=== PATIENT | female | born 1945 | race African-American/Black ===

== ENCOUNTER 2017-08-15 08:36 | Day surgery (SDC) | payer OTHER, MEDICAID ==
[2017-08-15] MEDS ORDERED: D5 LR 1000 ML 1,000 ML IV ONE (08:56)
[2017-08-15] MEDS ORDERED: DIPRIVAN VIAL 20 ML ONE (10:27)
[2017-08-15 11:44] LABS: BLOOD UREA NITROGEN 16 mg/dL (7-18); CALCIUM 9.4 mg/dL (8.5-10.1); CARBON DIOXIDE 29.6 mmol/L (21-32); CHLORIDE 100 mmol/L (98-107); COR NA(FOR HYPERGLY) 140 mmol/L (136-145); CREATININE 1.29 mg/dL (0.55-1.02); SODIUM 139 mmol/L (136-145); eGFR BLACK RACES 52 (>60); eGFR NON BLACK RACES 43 (>60)
[2017-08-15 11:49] LABS: ALANINE AMINOTRANSFERASE 16 Units/L (12-78); ALBUMIN 3.5 g/dL (3.4-5.0); ALKALINE PHOSPHATASE 87 Units/L (46-116); ASPARTATE AMINO TRANSFERASE 15 Units/L (15-37); TOTAL PROTEIN 7.6 g/dL (6.4-8.2)
[2017-08-15 12:00] LABS: BASOPHILS # (AUTO) 0.1 X10^3/uL (0.0-0.1); EOSINOPHILS % (AUTO) 0.7 % (0.9-2.9); HEMATOCRIT 27.9 % (36.0-47.0); HEMOGLOBIN 8.7 g/dL (12.0-16.0); LYMPHOCYTES # (AUTO) 1.3 X10^3/uL (1.3-2.9); LYMPHOCYTES % (AUTO) 24.9 % (21.0-51.0); MEAN CORPUSCULAR HEMOGLOBIN 23.4 pg (27.0-34.0); MEAN CORPUSCULAR HGB CONC 31.2 g/dL (33.0-35.0); MEAN CORPUSCULAR VOLUME 74.9 fL (80.0-100.0); MEAN PLATELET VOLUME 7.3 fL (7.4-11.0); MONOCYTES # (AUTO) 0.3 x10^3/uL (0.3-0.8); MONOCYTES % (AUTO) 5.9 % (0.0-13.0); NEUTROPHILS # (AUTO) 3.4 x10^3/uL (2.2-4.8); NEUTROPHILS % (AUTO) 67.5 % (42.0-75.0); PLATELET COUNT 601 X10^3/uL (150.0-450.0); RED BLOOD COUNT 3.73 X10^6/uL (3.5-5.4); RED CELL DISTRIBUTION WIDTH 15.5 % (11.6-16.5); WHITE BLOOD COUNT 5.1 X10^3/uL (3.6-10.0)
[2017-08-15 12:14] LABS: HYPOCHROMASIA 1+; MICROCYTOSIS 1+; PLATELET MORPHOLOGY COMMENT NORMAL (NORMAL)
[2017-08-15] MEDS ORDERED: K-DUR TAB 20 MEQ PO ONE (13:00)
[2017-08-15 14:43] VITALS: BP 114/60
--- NOTE | 2017-08-15 15:52 | CT ---
CT abdomen and pelvis with contrast Indication: Colon mass Technique: Helical CT images of the abdomen and pelvis were obtained with IV contrast. Reformatted im ages in the coronal and sagittal planes were also generated for review. Comparison: None Findings: Lung bases are clear. No aggressive osseous lesions are identified. The liver, gallbladder, spleen, pancreas, adrenals and kidneys are normal apart from a small right re nal cyst. There is an apple-core lesion of the ascending colon near the hepatic flexure, compatible with the pa tient's known colonic mass. The lumen of the ascending colon is moderately narrowed by the mass witho ut complete obstruction. There is mild pericolonic stranding as well as a few prominent adjacent lymp h nodes. For future reference, a right mesenteric node measures 8 mm in short axis on axial image 36. There is moderate diverticulosis of the descending colon without evidence of acute inflammation. The remaining GI tract, including the appendix is normal. There is moderate calcification of the aortoiliac system without aneurysm. The urinary bladder is nor mal. Calcified fibroids are noted throughout the uterus. The uterus and adnexa are otherwise grossly unremarkable. No free air or free fluid is identified. Impression: Apple core lesion of the ascending colon as detailed above, most compatible with colon cancer. Mildly prominent pericolonic lymph nodes are concerning for regional metastatic disease. If not already per formed, further evaluation with biopsy is advised. Fibroid uterus and additional incidental findings, as above. Reported By:
== END 2017-08-15 12:00 | disposition home or self-care (01) ==
LOC: SURG1 08:36
PROVIDERS: ATTEND Internal Medicine Gastroenterology
PROC: 0DJD8ZZ Inspection of Lower Intestinal Tract, Via Natural or Artificial Opening Endoscopic (ICD-10-PCS; principal; 2017-08-15 09:30)
PROC: 3E0H8GC Introduction of Other Therapeutic Substance into Lower GI, Via Natural or Artificial Opening Endoscopic (ICD-10-PCS; principal; 2017-08-15 09:30)
PROC: 0DBL8ZX Excision of Transverse Colon, Via Natural or Artificial Opening Endoscopic, Diagnostic (ICD-10-PCS; principal; 2017-08-15 09:30)
DX: D50.8 Other iron deficiency anemias (principal); K92.2 Gastrointestinal hemorrhage, unspecified; Z86.010 Personal history of colon polyps; K57.30 Diverticulosis of large intestine without perforation or abscess without bleeding; K64.0 First degree hemorrhoids; C18.5 Malignant neoplasm of splenic flexure
CPT/HCPCS: 36415; 74177; 80053; 82378; 85025; 99100; A4217; J3490; J7120